=== PATIENT | male | born 1955 | race African-American/Black ===

== ENCOUNTER 2017-09-05 16:27 | Inpatient (IN) ==
[2017-09-05] MEDS ORDERED: ONDANSETRON 4 MG/2 ML VIAL IV PRN (18:30)
[2017-09-05] MEDS ORDERED: SODIUM CHLORIDE 0.9% 1,000 ML IV SCH (19:00)
[2017-09-05 19:34] LABS: Basophils % 0.4 % (0.0-0.8); Eosinophils % 0.2 % (0.00-10.9); Hematocrit 47.6 VOL% (42.0-52.0); Hemoglobin 15.9 GM/DL (14.0-18.0); Immature Granulocytes % 0.4 %; Immature Granulocytes Absolute 0.02 #; Lymphocytes # 0.9 10*3/uL (1.4-4.0); Lymphocytes % 17.1 % (21.2-54.2); Mean Corpuscular HGB Conc 33.4 GM/DL (32-36); Mean Corpuscular Hemoglobin 34 PG (27-34); Mean Corpuscular Volume 102.6 FL (87-102); Mean Platelet Volume 10.7 FL (9.6-12.0); Monocytes # 0.5 10*3/uL (0.11-0.8); Neutrophils % 72.9 % (38.7-73.9); Platelet Count 129 T/CUMM (130-400); Red Blood Count 4.64 MC/CUMM (3.8-5.5); Red Cell Distribution Width 12.3 % (9.3-17.3); White Blood Count 5.4 T/CUMM (4-12)
[2017-09-05 19:42] LABS: Calcium 8.2 MG/DL (8.5-10.1); Osmolality,Calculated 279.5 MOS/KG (273-304); Potassium 3.9 MMOL/L (3.5-5.1)
[2017-09-05] MEDS ORDERED: GLUCAGON 1 MG VIAL IM PRN (20:47)
[2017-09-05] MEDS ORDERED: DEXTROSE 50% 25 GM/50 ML VIAL IV PRN (20:47)
[2017-09-05] MEDS: OSELTAMIVIR 75 MG CAPSULE PO SCH (21:35)
[2017-09-05] MEDS: LUBIPROSTONE 24 MCG CAPSULE PO SCH (21:35)
[2017-09-05] MEDS: INSULIN LISPRO 100 UNIT/ML SUBCUT SCH (21:38)
[2017-09-05] MEDS: SODIUM CHLORIDE 0.9% 1,000 ML IV SCH (21:43)
[2017-09-06 05:24] LABS: Basophils % 0.4 % (0.0-0.8); Eosinophils # 0.1 10*3/uL (0.0-0.87); Eosinophils % 2.5 % (0.00-10.9); Hematocrit 42.2 VOL% (42.0-52.0); Hemoglobin 14.3 GM/DL (14.0-18.0); Immature Granulocytes % 0.2 %; Immature Granulocytes Absolute 0.01 #; Lymphocytes # 2.1 10*3/uL (1.4-4.0); Lymphocytes % 43.9 % (21.2-54.2); Mean Corpuscular HGB Conc 33.9 GM/DL (32-36); Mean Corpuscular Hemoglobin 34 PG (27-34); Mean Corpuscular Volume 100.5 FL (87-102); Mean Platelet Volume 10.9 FL (9.6-12.0); Monocytes # 0.6 10*3/uL (0.11-0.8); Monocytes % 11.7 % (1.7-12.7); Neutrophils % 41.3 % (38.7-73.9); Platelet Count 121 T/CUMM (130-400); Red Cell Distribution Width 12.4 % (9.3-17.3); White Blood Count 4.8 T/CUMM (4-12)
[2017-09-06] MEDS: SODIUM CHLORIDE 0.9% 1,000 ML IV SCH ×2 (05:42→14:58)
[2017-09-06 05:46] LABS: Calcium 8.2 MG/DL (8.5-10.1); Osmolality,Calculated 280.4 MOS/KG (273-304)
[2017-09-06 05:47] LABS: Eosinophils 1 % (0-10); Lymphocytes 44 % (20-55); Segmented Neutrophils 43 % (50-85); Total Cells Counted 100
[2017-09-06 05:48] LABS: Burr Cells Slight; Tear Drop Cells Slight
[2017-09-06 05:49] LABS: Platelet Estimate Adequate
[2017-09-06 07:47] LABS: Apearance,Urine Slightly Hazy (Clear); Bilirubin,Urine Negative (Negative); Blood, Urine Moderate mg/dL (Negative); Glucose,Urine (UA) Negative (Negative); Granular Casts,Urine 4 /LPF (0-1); Hyaline Casts,Urine 3 /LPF (0-3); Ketones,Urine Negative (Negative); Mucus,Urine Occasional /LPF (Occasional); Nitrite,Urine Negative (Negative); Protein,Urine 30 MG/DL; RBC,Urine <1 /HPF (0-4); Squamous Epithelial Cell,Urine Occasional /HPF (0-10); Urine Color Yellow (Yellow); Urine Specific Gravity 1.014 (1.001-1.035); Urine Urobilinogen < 2.0 EU/DL (0.2-1.0); WBC,Urine 3 /HPF (0-6); White Blood Cell Casts,Urine 1 /LPF (<1)
[2017-09-06] MEDS: DONEPEZIL 10 MG TABLET PO SCH (09:10)
[2017-09-06] MEDS: LUBIPROSTONE 24 MCG CAPSULE PO SCH ×2 (09:11→21:48)
[2017-09-06] MEDS: ESCITALOPRAM 10 MG TABLET PO SCH (09:11)
[2017-09-06] MEDS: ASPIRIN EC 81 MG TABLET PO SCH (09:11)
[2017-09-06] MEDS: OSELTAMIVIR 75 MG CAPSULE PO SCH (09:11)
[2017-09-06] MEDS: PANTOPRAZOLE 40 MG TABLET PO SCH (09:11)
[2017-09-06] MEDS: INSULIN LISPRO 100 UNIT/ML SUBCUT SCH ×4 (09:12→21:48)
[2017-09-06] MEDS: SODIUM BICARB INJ 100 MEQ in DEXTROSE 5% 1,000 ML IV SCH (14:59)
[2017-09-06] MEDS: OSELTAMIVIR 30 MG CAPSULE PO SCH (21:47)
[2017-09-07] MEDS: SODIUM BICARB INJ 100 MEQ in DEXTROSE 5% 1,000 ML IV SCH ×2 (01:44→11:37)
[2017-09-07] MEDS: SODIUM CHLORIDE 0.9% 1,000 ML IV SCH (04:12)
[2017-09-07] MEDS ORDERED: diphenhydrAMINE CAP 25 MG CAPSULE PO ONE (05:23)
[2017-09-07 06:28] LABS: Basophils % 0.5 % (0.0-0.8); Eosinophils # 0.1 10*3/uL (0.0-0.87); Eosinophils % 2.9 % (0.00-10.9); Hematocrit 36.3 VOL% (42.0-52.0); Hemoglobin 12.8 GM/DL (14.0-18.0); Lymphocytes # 1.9 10*3/uL (1.4-4.0); Lymphocytes % 45.3 % (21.2-54.2); Mean Corpuscular HGB Conc 35.3 GM/DL (32-36); Mean Corpuscular Hemoglobin 35 PG (27-34); Mean Corpuscular Volume 98.1 FL (87-102); Mean Platelet Volume 11.1 FL (9.6-12.0); Monocytes # 0.4 10*3/uL (0.11-0.8); Monocytes % 9.4 % (1.7-12.7); Neutrophils # 1.7 10*3/uL (1.4-7.4); Neutrophils % 41.9 % (38.7-73.9); Platelet Count 120 T/CUMM (130-400); Red Cell Distribution Width 12.6 % (9.3-17.3); White Blood Count 4.1 T/CUMM (4-12)
[2017-09-07 06:57] LABS: Calcium 8.2 MG/DL (8.5-10.1); Potassium 4.1 MMOL/L (3.5-5.1)
[2017-09-07 07:01] LABS: Burr Cells Slight; Giant Platelets Few; Hypochromasia Slight; Lymphocytes 43 % (20-55); Ovalocytes Slight; Platelet Estimate Normal; Segmented Neutrophils 47 % (50-85); Total Cells Counted 100
[2017-09-07] MEDS: PANTOPRAZOLE 40 MG TABLET PO SCH (08:34)
[2017-09-07] MEDS: ESCITALOPRAM 10 MG TABLET PO SCH (08:34)
[2017-09-07] MEDS: LUBIPROSTONE 24 MCG CAPSULE PO SCH ×2 (08:34→22:00)
[2017-09-07] MEDS: ASPIRIN EC 81 MG TABLET PO SCH (08:34)
[2017-09-07] MEDS: OSELTAMIVIR 30 MG CAPSULE PO SCH (08:34)
[2017-09-07] MEDS: DONEPEZIL 10 MG TABLET PO SCH (08:34)
[2017-09-07] MEDS: INSULIN LISPRO 100 UNIT/ML SUBCUT SCH ×4 (08:35→22:00)
[2017-09-07] MEDS: EMTRICITABINE PO SCH ×2 (10:33→21:59)
[2017-09-07] MEDS: [UNRECOGNIZED DRUG - OTHER] PO SCH ×2 (10:33→21:59)
[2017-09-07] MEDS: TENOFOVIR DISOPROXIL FUMARATE PO SCH ×2 (10:33→21:59)
[2017-09-07] MEDS: DARUNAVIR PO SCH ×2 (10:33→21:59)
[2017-09-07] MEDS: COBICISTAT PO SCH ×2 (10:33→21:59)
[2017-09-07] MEDS: [UNRECOGNIZED DRUG - OTHER] PO SCH ×2 (10:33→21:59)
[2017-09-07] MEDS: HYDROCORTISONE VALERATE 0.2% TOP SCH ×3 (11:08→22:04)
[2017-09-07] MEDS: OSELTAMIVIR 75 MG CAPSULE PO SCH (22:01)
[2017-09-08 07:02] LABS: Basophils % 0.5 % (0.0-0.8); Eosinophils # 0.1 10*3/uL (0.0-0.87); Eosinophils % 2.3 % (0.00-10.9); Hematocrit 36.6 VOL% (42.0-52.0); Hemoglobin 12.8 GM/DL (14.0-18.0); Immature Granulocytes % 0.2 %; Immature Granulocytes Absolute 0.01 #; Lymphocytes # 2.2 10*3/uL (1.4-4.0); Lymphocytes % 50.2 % (21.2-54.2); Mean Corpuscular Hemoglobin 34 PG (27-34); Mean Corpuscular Volume 98.4 FL (87-102); Mean Platelet Volume 10.4 FL (9.6-12.0); Monocytes # 0.3 10*3/uL (0.11-0.8); Monocytes % 7.8 % (1.7-12.7); Neutrophils # 1.7 10*3/uL (1.4-7.4); Platelet Count 137 T/CUMM (130-400); Red Blood Count 3.72 MC/CUMM (3.8-5.5); Red Cell Distribution Width 12.4 % (9.3-17.3); White Blood Count 4.3 T/CUMM (4-12)
[2017-09-08 07:28] LABS: Eosinophils 2 % (0-10); Giant Platelets Few; Hypochromasia 1+; Lymphocytes 44 % (20-55); Ovalocytes Slight; Platelet Estimate Normal; Segmented Neutrophils 44 % (50-85); Total Cells Counted 100
[2017-09-08 07:39] LABS: Albumin 3.2 G/DL (3.4-5.0); Bilirubin,Total 0.8 MG/DL (0.2-1.0); Calcium 8.7 MG/DL (8.5-10.1); Osmolality,Calculated 287.8 MOS/KG (273-304); Total Protein 5.9 G/DL (6.4-8.3)
[2017-09-08 08:12] VITALS: BP 146/81
[2017-09-08] MEDS: PANTOPRAZOLE 40 MG TABLET PO SCH (08:12)
[2017-09-08] MEDS: ASPIRIN EC 81 MG TABLET PO SCH (08:12)
[2017-09-08] MEDS: OSELTAMIVIR 75 MG CAPSULE PO SCH (08:12)
[2017-09-08] MEDS: DONEPEZIL 10 MG TABLET PO SCH (08:12)
[2017-09-08] MEDS: LUBIPROSTONE 24 MCG CAPSULE PO SCH (08:12)
[2017-09-08] MEDS: HYDROCORTISONE VALERATE 0.2% TOP SCH (08:12)
[2017-09-08] MEDS: ESCITALOPRAM 10 MG TABLET PO SCH (08:12)
[2017-09-08] MEDS: INSULIN LISPRO 100 UNIT/ML SUBCUT SCH (08:13)
== END 2017-09-08 12:50 | disposition home or self-care (01) | DRG 684 ==
LOC: SUATTDRO 17:48 → N.2E 17:48
PROVIDERS: ADMIT Internal Medicine; ATTEND Family Medicine

== ENCOUNTER 2018-06-29 05:34 | Inpatient (IN) ==
[2018-06-29] MEDS ORDERED: VANCOMYCIN INJ 1,000 MG in SODIUM CHLORIDE 0.9% 250 ML IV ONE (06:00)
[2018-06-29] MEDS ORDERED: CLINDAMYCIN INJ 900 MG in PREMIX 1 EACH IV ONE (06:00)
[2018-06-29] MEDS ORDERED: VANCOMYCIN 1,000 MG VIAL ONE (06:05)
[2018-06-29] MEDS ORDERED: CLINDAMYCIN INJ 50 ML IV ONE (06:05)
[2018-06-29] MEDS ORDERED: ACETAMINOPHEN 500 MG TABLET PO ONE (06:20)
[2018-06-29] MEDS ORDERED: GABAPENTIN 400 MG CAPSULE PO ONE (06:20)
[2018-06-29] MEDS ORDERED: LACTATED RINGERS 1,000 ML IV SCH (06:30)
[2018-06-29] MEDS ORDERED: ROPIVACAINE 0.5% 30 ML VIAL ONE (06:34)
[2018-06-29] MEDS ORDERED: TEMAZEPAM 7.5 MG CAPSULE PO PRN (08:37)
[2018-06-29] MEDS ORDERED: LACTULOSE 20 GM/30 ML UDCUP PO PRN (08:37)
[2018-06-29] MEDS ORDERED: MORPHINE 4 MG/1 ML VIAL IV PRN ×2 (08:37→08:59)
[2018-06-29] MEDS ORDERED: PROMETHAZINE 25 MG/1 ML VIAL IM PRN (08:37)
[2018-06-29] MEDS ORDERED: ONDANSETRON 4 MG/2 ML VIAL IV PRN (08:37)
[2018-06-29] MEDS ORDERED: BISACODYL 10 MG SUPP RECTAL PRN (08:37)
[2018-06-29] MEDS ORDERED: NALOXONE 0.4 MG/ML VIAL IV PRN (08:37)
[2018-06-29] MEDS ORDERED: LINACLOTIDE 145 MCG CAPSULE PO PRN (08:49)
[2018-06-29] MEDS ORDERED: GLUCAGON 1 MG VIAL IM PRN (08:50)
[2018-06-29] MEDS ORDERED: DEXTROSE 50% 25 GM/50 ML VIAL IV PRN (08:50)
[2018-06-29] MEDS ORDERED: PROPOFOL 200 MG/20 ML VIAL IV ONE (09:05)
[2018-06-29] MEDS ORDERED: MIDAZOLAM 2 MG/2 ML VIAL ONE (09:05)
[2018-06-29] MEDS ORDERED: BUPIVACAINE SPINAL 0.75% 2 ML AMP SPINAL ONE (09:05)
[2018-06-29] MEDS ORDERED: SODIUM CHLORIDE 0.9% 100 ML IV ONE (09:06)
[2018-06-29] MEDS ORDERED: TRANEXAMIC ACID 1,000 MG/10 ML VIAL ONE (09:06)
[2018-06-29] MEDS ORDERED: PHENYLEPHRINE 1 MG/10 ML SYRINGE IV ONE (09:06)
[2018-06-29] MEDS ORDERED: fentaNYL 100 MCG/2 ML VIAL ONE (09:06)
[2018-06-29] MEDS ORDERED: ONDANSETRON 4 MG/2 ML VIAL ONE (09:06)
[2018-06-29 09:14] LABS: Amorphous Crystals,Urine Few /HPF (Few); Apearance,Urine CLOUDY (Clear); Bilirubin,Urine Negative (Negative); Blood, Urine Negative (Negative); Glucose,Urine (UA) 150 mg/dL (Negative); Hyaline Casts,Urine 3 /LPF (0-3); Ketones,Urine Negative (Negative); Mucus,Urine Occasional /LPF (Occasional); Nitrite,Urine Negative (Negative); Protein,Urine Negative; RBC,Urine 8 /HPF (0-4); Squamous Epithelial Cell,Urine Occasional /HPF (0-10); Urine Color Amber (Yellow); Urine Specific Gravity 1.027 (1.001-1.035); Urine Urobilinogen < 2.0 EU/DL (0.2-1.0)
[2018-06-29] MEDS ORDERED: MORPHINE PCA 30 MG/30 ML SYRINGE IV ONE (09:19)
[2018-06-29] MEDS: MORPHINE PCA 30 MG/30 ML SYRINGE IV SCH (09:24)
[2018-06-29] MEDS ORDERED: INFLUENZA VIRUS VACCINE 0.5 ML SYRINGE IM ONE (10:27)
[2018-06-29] MEDS: MECLIZINE 25 MG TABLET PO SCH ×2 (10:39→21:49)
[2018-06-29] MEDS: DOCUSATE SODIUM 100 MG CAPSULE PO SCH ×2 (10:39→21:49)
[2018-06-29] MEDS: ASPIRIN EC 81 MG TABLET PO SCH (10:39)
[2018-06-29] MEDS: ATORVASTATIN 20 MG TABLET PO SCH (10:41)
[2018-06-29] MEDS: PANTOPRAZOLE 40 MG TABLET PO SCH ×2 (10:41→21:49)
[2018-06-29] MEDS: TOPIRAMATE 100 MG TABLET PO SCH ×2 (10:41→21:49)
[2018-06-29] MEDS: INSULIN NPH/REGULAR 70/30 100 UNIT/ML SUBCUT SCH ×2 (10:41→17:28)
[2018-06-29] MEDS: diphenhydrAMINE CAP 25 MG CAPSULE PO PRN (11:20)
[2018-06-29] MEDS ORDERED: INSULIN GLARGINE 100 UNIT/ML SUBCUT SCH (11:30)
[2018-06-29] MEDS: INSULIN REGULAR 100 UNIT/ML SUBCUT SCH ×3 (12:06→21:48)
[2018-06-29] MEDS: NICOTINE 14 MG/24 HR PATCH TRANSDERM SCH (14:05)
[2018-06-29] MEDS: CLINDAMYCIN INJ 900 MG in PREMIX 1 EACH IV SCH ×2 (14:06→21:46)
[2018-06-29] MEDS ORDERED: INSULIN NPH/REGULAR 70/30 100 UNIT/ML SUBCUT SCH (19:00)
[2018-06-29] MEDS: INSULIN GLARGINE 100 UNIT/ML SUBCUT SCH (21:47)
[2018-06-29] MEDS: FONDAPARINUX 2.5 MG/0.5 ML SYRINGE SUBCUT SCH (21:47)
[2018-06-29] MEDS: DONEPEZIL 10 MG TABLET PO SCH (21:48)
[2018-06-29] MEDS: EMTRICITABINE/TENOFOVIR 200-300 MG TABLET PO SCH (21:50)
[2018-06-29] MEDS: AZELASTINE NASAL 137 MCG/SPRAY 30 ML BOTTLE BOTH NARES SCH (21:50)
[2018-06-30 06:09] LABS: Basophils % 0.3 % (0.0-0.8); Eosinophils % 0.2 % (0.00-10.9); Hematocrit 39.2 VOL% (42.0-52.0); Hemoglobin 13.3 GM/DL (14.0-18.0); Immature Granulocytes % 0.6 %; Immature Granulocytes Absolute 0.07 #; Lymphocytes # 2.1 10*3/uL (1.4-4.0); Lymphocytes % 16.5 % (21.2-54.2); Mean Corpuscular HGB Conc 33.9 GM/DL (32-36); Mean Corpuscular Hemoglobin 34 PG (27-34); Mean Corpuscular Volume 100.8 FL (87-102); Mean Platelet Volume 10.5 FL (9.6-12.0); Monocytes # 1.1 10*3/uL (0.11-0.8); Monocytes % 8.9 % (1.7-12.7); Neutrophils # 9.2 10*3/uL (1.4-7.4); Neutrophils % 73.5 % (38.7-73.9); Platelet Count 132 T/CUMM (130-400); Red Blood Count 3.89 MC/CUMM (3.8-5.5); Red Cell Distribution Width 12.6 % (9.3-17.3); White Blood Count 12.5 T/CUMM (4-12)
[2018-06-30 06:37] LABS: Calcium 8.2 MG/DL (8.5-10.1); Osmolality,Calculated 266.4 MOS/KG (273-304); Potassium 3.5 MMOL/L (3.5-5.1)
[2018-06-30] MEDS: INSULIN REGULAR 100 UNIT/ML SUBCUT SCH ×4 (07:46→21:53)
[2018-06-30] MEDS: LUBIPROSTONE 24 MCG CAPSULE PO SCH ×2 (09:04→21:58)
[2018-06-30] MEDS: DOCUSATE SODIUM 100 MG CAPSULE PO SCH ×2 (09:04→21:58)
[2018-06-30] MEDS: MECLIZINE 25 MG TABLET PO SCH ×2 (09:04→21:58)
[2018-06-30] MEDS: AZELASTINE NASAL 137 MCG/SPRAY 30 ML BOTTLE BOTH NARES SCH ×2 (09:04→21:58)
[2018-06-30] MEDS: GABAPENTIN 300 MG CAPSULE PO SCH (09:04)
[2018-06-30] MEDS: PANTOPRAZOLE 40 MG TABLET PO SCH ×2 (09:05→21:58)
[2018-06-30] MEDS: TOPIRAMATE 100 MG TABLET PO SCH ×2 (09:05→21:58)
[2018-06-30] MEDS: ATORVASTATIN 20 MG TABLET PO SCH (09:05)
[2018-06-30] MEDS: NICOTINE 14 MG/24 HR PATCH TRANSDERM SCH (09:05)
[2018-06-30] MEDS: ASPIRIN EC 81 MG TABLET PO SCH (09:05)
[2018-06-30] MEDS: INSULIN NPH/REGULAR 70/30 100 UNIT/ML SUBCUT SCH ×2 (09:06→17:16)
[2018-06-30] MEDS: MORPHINE PCA 30 MG/30 ML SYRINGE IV SCH (15:35)
[2018-06-30] MEDS: FONDAPARINUX 2.5 MG/0.5 ML SYRINGE SUBCUT SCH (21:57)
[2018-06-30] MEDS: INSULIN GLARGINE 100 UNIT/ML SUBCUT SCH (21:57)
[2018-06-30] MEDS: DONEPEZIL 10 MG TABLET PO SCH (21:58)
[2018-06-30] MEDS: EMTRICITABINE/TENOFOVIR 200-300 MG TABLET PO SCH (21:59)
[2018-07-01] MEDS: diphenhydrAMINE CAP 25 MG CAPSULE PO PRN (06:14)
[2018-07-01] MEDS: INSULIN REGULAR 100 UNIT/ML SUBCUT SCH ×4 (09:52→20:36)
[2018-07-01] MEDS: INSULIN NPH/REGULAR 70/30 100 UNIT/ML SUBCUT SCH (09:53)
[2018-07-01] MEDS: PANTOPRAZOLE 40 MG TABLET PO SCH ×2 (09:54→21:50)
[2018-07-01] MEDS: ATORVASTATIN 20 MG TABLET PO SCH (09:54)
[2018-07-01] MEDS: DOCUSATE SODIUM 100 MG CAPSULE PO SCH ×2 (09:54→21:50)
[2018-07-01] MEDS: GABAPENTIN 300 MG CAPSULE PO SCH (09:54)
[2018-07-01] MEDS: LUBIPROSTONE 24 MCG CAPSULE PO SCH ×2 (09:55→21:51)
[2018-07-01] MEDS: MECLIZINE 25 MG TABLET PO SCH ×2 (09:55→21:50)
[2018-07-01] MEDS: TOPIRAMATE 100 MG TABLET PO SCH ×2 (09:55→21:50)
[2018-07-01] MEDS: NICOTINE 14 MG/24 HR PATCH TRANSDERM SCH (09:55)
[2018-07-01] MEDS: ASPIRIN EC 81 MG TABLET PO SCH (09:55)
[2018-07-01] MEDS: AZELASTINE NASAL 137 MCG/SPRAY 30 ML BOTTLE BOTH NARES SCH ×3 (09:56→21:56)
[2018-07-01 10:35] LABS: Basophils % 0.2 % (0.0-0.8); Eosinophils % 0.3 % (0.00-10.9); Hematocrit 40.7 VOL% (42.0-52.0); Hemoglobin 13.7 GM/DL (14.0-18.0); Immature Granulocytes % 0.5 %; Immature Granulocytes Absolute 0.06 #; Lymphocytes # 1.9 10*3/uL (1.4-4.0); Lymphocytes % 14.7 % (21.2-54.2); Mean Corpuscular HGB Conc 33.7 GM/DL (32-36); Mean Corpuscular Hemoglobin 34 PG (27-34); Mean Platelet Volume 10.1 FL (9.6-12.0); Monocytes # 1.1 10*3/uL (0.11-0.8); Monocytes % 8.5 % (1.7-12.7); Neutrophils # 9.7 10*3/uL (1.4-7.4); Neutrophils % 75.8 % (38.7-73.9); Platelet Count 138 T/CUMM (130-400); Red Blood Count 4.03 MC/CUMM (3.8-5.5); Red Cell Distribution Width 12.3 % (9.3-17.3); White Blood Count 12.7 T/CUMM (4-12)
[2018-07-01 10:52] LABS: Calcium 9.2 MG/DL (8.5-10.1); Osmolality,Calculated 272.7 MOS/KG (273-304)
[2018-07-01] MEDS: NOVOLIN 70/30 SUBCUT SCH (19:14)
[2018-07-01] MEDS: DONEPEZIL 10 MG TABLET PO SCH (21:50)
[2018-07-01] MEDS: FONDAPARINUX 2.5 MG/0.5 ML SYRINGE SUBCUT SCH (21:50)
[2018-07-01] MEDS: INSULIN GLARGINE 100 UNIT/ML SUBCUT SCH (21:52)
[2018-07-01] MEDS: EMTRICITABINE/TENOFOVIR 200-300 MG TABLET PO SCH (21:52)
[2018-07-02 06:05] LABS: Basophils % 0.1 % (0.0-0.8); Eosinophils # 0.1 10*3/uL (0.0-0.87); Eosinophils % 0.6 % (0.00-10.9); Hematocrit 32.9 VOL% (42.0-52.0); Hemoglobin 11.2 GM/DL (14.0-18.0); Immature Granulocytes % 0.5 %; Immature Granulocytes Absolute 0.05 #; Lymphocytes # 1.4 10*3/uL (1.4-4.0); Lymphocytes % 14.8 % (21.2-54.2); Mean Corpuscular Hemoglobin 34 PG (27-34); Mean Platelet Volume 10.1 FL (9.6-12.0); Monocytes % 9.9 % (1.7-12.7); Neutrophils # 7.1 10*3/uL (1.4-7.4); Neutrophils % 74.1 % (38.7-73.9); Platelet Count 121 T/CUMM (130-400); Red Blood Count 3.29 MC/CUMM (3.8-5.5); Red Cell Distribution Width 12.3 % (9.3-17.3); White Blood Count 9.6 T/CUMM (4-12)
[2018-07-02] MEDS: INSULIN REGULAR 100 UNIT/ML SUBCUT SCH ×4 (07:41→21:32)
[2018-07-02] MEDS: ATORVASTATIN 20 MG TABLET PO SCH (08:37)
[2018-07-02] MEDS: LUBIPROSTONE 24 MCG CAPSULE PO SCH ×2 (08:37→21:37)
[2018-07-02] MEDS: MECLIZINE 25 MG TABLET PO SCH ×2 (08:37→21:39)
[2018-07-02] MEDS: GABAPENTIN 300 MG CAPSULE PO SCH (08:38)
[2018-07-02] MEDS: PANTOPRAZOLE 40 MG TABLET PO SCH ×2 (08:38→21:32)
[2018-07-02] MEDS: ASPIRIN EC 81 MG TABLET PO SCH (08:38)
[2018-07-02] MEDS: DOCUSATE SODIUM 100 MG CAPSULE PO SCH ×2 (08:38→21:32)
[2018-07-02] MEDS: TOPIRAMATE 100 MG TABLET PO SCH ×2 (08:38→21:32)
[2018-07-02] MEDS: AZELASTINE NASAL 137 MCG/SPRAY 30 ML BOTTLE BOTH NARES SCH ×2 (08:39→21:33)
[2018-07-02] MEDS: NICOTINE 14 MG/24 HR PATCH TRANSDERM SCH (08:43)
[2018-07-02] MEDS: MAGNESIUM HYDROXIDE SUSP 30 ML UDCUP PO PRN ×2 (08:44→15:49)
[2018-07-02] MEDS: NOVOLIN 70/30 SUBCUT SCH ×2 (08:47→17:49)
[2018-07-02] MEDS: FONDAPARINUX 2.5 MG/0.5 ML SYRINGE SUBCUT SCH (21:32)
[2018-07-02] MEDS: DONEPEZIL 10 MG TABLET PO SCH (21:32)
[2018-07-02] MEDS: EMTRICITABINE/TENOFOVIR 200-300 MG TABLET PO SCH (21:33)
[2018-07-02] MEDS: INSULIN GLARGINE 100 UNIT/ML SUBCUT SCH (21:37)
[2018-07-03] MEDS: INSULIN REGULAR 100 UNIT/ML SUBCUT SCH ×4 (07:32→21:09)
[2018-07-03] MEDS: GABAPENTIN 300 MG CAPSULE PO SCH (08:31)
[2018-07-03] MEDS: DOCUSATE SODIUM 100 MG CAPSULE PO SCH ×2 (08:32→21:10)
[2018-07-03] MEDS: ATORVASTATIN 20 MG TABLET PO SCH (08:32)
[2018-07-03] MEDS: PANTOPRAZOLE 40 MG TABLET PO SCH ×2 (08:32→21:10)
[2018-07-03] MEDS: TOPIRAMATE 100 MG TABLET PO SCH ×2 (08:32→21:10)
[2018-07-03] MEDS: MECLIZINE 25 MG TABLET PO SCH ×2 (08:32→21:10)
[2018-07-03] MEDS: LUBIPROSTONE 24 MCG CAPSULE PO SCH ×2 (08:33→20:00)
[2018-07-03] MEDS: NICOTINE 14 MG/24 HR PATCH TRANSDERM SCH (08:34)
[2018-07-03] MEDS: ASPIRIN EC 81 MG TABLET PO SCH (08:34)
[2018-07-03] MEDS: AZELASTINE NASAL 137 MCG/SPRAY 30 ML BOTTLE BOTH NARES SCH ×2 (08:36→21:11)
[2018-07-03] MEDS: NOVOLIN 70/30 SUBCUT SCH ×2 (08:37→16:22)
[2018-07-03] MEDS: diphenhydrAMINE CAP 25 MG CAPSULE PO PRN (18:22)
[2018-07-03] MEDS: FONDAPARINUX 2.5 MG/0.5 ML SYRINGE SUBCUT SCH (21:09)
[2018-07-03] MEDS: INSULIN GLARGINE 100 UNIT/ML SUBCUT SCH (21:10)
[2018-07-03] MEDS: DONEPEZIL 10 MG TABLET PO SCH (21:10)
[2018-07-03] MEDS: EMTRICITABINE/TENOFOVIR 200-300 MG TABLET PO SCH (21:11)
[2018-07-04] MEDS: INSULIN REGULAR 100 UNIT/ML SUBCUT SCH ×2 (08:13→12:19)
[2018-07-04] MEDS: ATORVASTATIN 20 MG TABLET PO SCH (08:15)
[2018-07-04] MEDS: DOCUSATE SODIUM 100 MG CAPSULE PO SCH (08:15)
[2018-07-04] MEDS: NOVOLIN 70/30 SUBCUT SCH (08:15)
[2018-07-04] MEDS: PANTOPRAZOLE 40 MG TABLET PO SCH (08:15)
[2018-07-04] MEDS: GABAPENTIN 300 MG CAPSULE PO SCH (08:15)
[2018-07-04] MEDS: LUBIPROSTONE 24 MCG CAPSULE PO SCH (08:15)
[2018-07-04] MEDS: TOPIRAMATE 100 MG TABLET PO SCH (08:15)
[2018-07-04] MEDS: MECLIZINE 25 MG TABLET PO SCH (08:15)
[2018-07-04] MEDS: AZELASTINE NASAL 137 MCG/SPRAY 30 ML BOTTLE BOTH NARES SCH (08:16)
[2018-07-04] MEDS: ASPIRIN EC 81 MG TABLET PO SCH (08:16)
[2018-07-04] MEDS: NICOTINE 14 MG/24 HR PATCH TRANSDERM SCH (08:18)
[2018-07-04 12:40] VITALS: BP 133/73
== END 2018-07-04 14:45 | disposition swing bed (61) | DRG 470 ==
LOC: N.SDSINP 05:34 → N.3E 08:35
PROVIDERS: ADMIT Orthopaedic Surgery; ATTEND Orthopaedic Surgery

== ENCOUNTER 2019-03-16 16:23 | Observation (INO) ==
[2019-03-16] MEDS ORDERED: SODIUM CHLORIDE 0.9% 1,000 ML IV STA (17:40)
[2019-03-16] MEDS ORDERED: PANTOPRAZOLE 40 MG VIAL IV STA (17:40)
[2019-03-16] MEDS ORDERED: ONDANSETRON 4 MG/2 ML VIAL IV STA (17:40)
[2019-03-16 18:14] LABS: Alanine Aminotransferase 22 U/L (16-61); Alkaline Phosphatase 118 U/L (45-117); Amylase 62 U/L (25-115); Aspartate Amino Transferase 16 U/L (0-37); Blood Urea Nitrogen 15 MG/DL (7-18); Calcium 10.2 MG/DL (8.5-10.1); Estimated Glom Filtration Rate 85 ML/MIN; Glucose 169 MG/DL (74-106); Osmolality,Calculated 279.7 MOS/KG (273-304); Total Protein 7.9 G/DL (6.4-8.3); Troponin I < 0.015 NG/ML (0.00-0.045)
[2019-03-16 18:45] LABS: Basophils % 0.3 % (0.0-0.8); Eosinophils # 0.1 10*3/uL (0.0-0.87); Eosinophils % 1.7 % (0.00-10.9); Hemoglobin 16.2 GM/DL (14.0-18.0); Immature Granulocytes % 0.3 %; Immature Granulocytes Absolute 0.02 #; Lymphocytes # 2.1 10*3/uL (1.4-4.0); Lymphocytes % 37.1 % (21.2-54.2); Mean Corpuscular HGB Conc 34.5 GM/DL (32-36); Mean Corpuscular Volume 95.3 FL (87-102); Mean Platelet Volume 10.6 FL (9.6-12.0); Monocytes % 7.1 % (1.7-12.7); NRBC # 0.17 10*3/uL; Neutrophils % 53.5 % (38.7-73.9); Platelet Count 217 T/CUMM (130-400); Red Blood Count 4.93 MC/CUMM (3.8-5.5); Red Cell Distribution Width 12.7 % (9.3-17.3); White Blood Count 5.7 T/CUMM (4-12)
[2019-03-16] MEDS ORDERED: HYDROmorphone 2 MG/1 ML VIAL IV STA (18:52)
[2019-03-16 20:01] LABS: Apearance,Urine CLEAR (Clear); Bilirubin,Urine Negative (Negative); Blood, Urine Negative (Negative); Glucose,Urine (UA) 50 mg/dL (Negative); Ketones,Urine Negative (Negative); Nitrite,Urine Negative (Negative); Protein,Urine Negative; RBC,Urine 1 /HPF (0-4); Squamous Epithelial Cell,Urine Occasional /HPF (0-10); Urine Color Yellow (Yellow); Urine Specific Gravity 1.047 (1.001-1.035); Urine Urobilinogen < 2.0 EU/DL (0.2-1.0); WBC,Urine <1 /HPF (0-6)
[2019-03-16] MEDS ORDERED: ONDANSETRON 4 MG/2 ML VIAL IV PRN (21:03)
[2019-03-16] MEDS ORDERED: ACETAMINOPHEN 325 MG TABLET PO PRN (21:03)
[2019-03-16] MEDS: ENOXAPARIN 40 MG/0.4 ML SYRINGE SUBCUT SCH (22:40)
[2019-03-16] MEDS: SODIUM CHLORIDE 0.9% 1,000 ML IV SCH (22:40)
[2019-03-16] MEDS ORDERED: DEXTROSE 50% 25 GM/50 ML VIAL IV PRN (23:22)
[2019-03-16] MEDS ORDERED: GLUCAGON 1 MG VIAL IM PRN (23:22)
[2019-03-16] MEDS ORDERED: EMTRICITABINE/TENOFOVIR 200-300 MG TABLET PO SCH (23:45)
[2019-03-17] MEDS: FAMOTIDINE 20 MG TABLET PO SCH ×3 (00:25→20:06)
[2019-03-17] MEDS: DONEPEZIL 10 MG TABLET PO SCH ×2 (00:25→20:06)
[2019-03-17] MEDS: AZELASTINE NASAL 137 MCG/SPRAY 30 ML BOTTLE BOTH NARES SCH ×3 (00:26→20:06)
[2019-03-17] MEDS: INSULIN REGULAR 100 UNIT/ML SUBCUT SCH ×5 (00:32→21:37)
[2019-03-17] MEDS: SODIUM CHLORIDE 0.9% 1,000 ML IV SCH ×2 (06:48→20:07)
[2019-03-17 07:09] LABS: Basophils % 0.6 % (0.0-0.8); Eosinophils % 2.5 % (0.00-10.9); Hematocrit 42.5 VOL% (42.0-52.0); Hemoglobin 14.6 GM/DL (14.0-18.0); Immature Granulocytes % 0.3 %; Lymphocytes % 35.9 % (21.2-54.2); Mean Corpuscular HGB Conc 34.4 GM/DL (32-36); Mean Corpuscular Volume 96.4 FL (87-102); Mean Platelet Volume 9.8 FL (9.6-12.0); Monocytes % 6.5 % (1.7-12.7); Neutrophils % 54.2 % (38.7-73.9); Platelet Count 171 T/CUMM (130-400); Red Blood Count 4.41 MC/CUMM (3.8-5.5); Red Cell Distribution Width 12.8 % (9.3-17.3); White Blood Count 6.5 T/CUMM (4-12)
[2019-03-17 07:10] LABS: Eosinophils # 0.2 10*3/uL (0.0-0.87); Immature Granulocytes Absolute 0.02 #; Lymphocytes # 2.3 10*3/uL (1.4-4.0)
[2019-03-17 07:30] LABS: Albumin 3.4 G/DL (3.4-5.0); Bilirubin,Total 0.8 MG/DL (0.2-1.0); Osmolality,Calculated 283.4 MOS/KG (273-304); Total Protein 6.8 G/DL (6.4-8.3)
[2019-03-17] MEDS ORDERED: Empagliflozin [Jardiance] 10 MG PO SCH (09:00)
[2019-03-17] MEDS ORDERED: DORZOLAMIDE/TIMOLOL OPH SOLN 10 ML BOTTLE LEFT EYE SCH (09:00)
[2019-03-17] MEDS ORDERED: DARUNAVIR COBICISTAT PO SCH (09:00)
[2019-03-17] MEDS ORDERED: FLUCONAZOLE 100 MG TABLET PO SCH (09:00)
[2019-03-17] MEDS ORDERED: PANTOPRAZOLE 40 MG TABLET PO SCH (09:00)
[2019-03-17] MEDS ORDERED: ATORVASTATIN 20 MG TABLET PO SCH ×2 (09:00→11:26)
[2019-03-17] MEDS ORDERED: prednisoLONE ACETATE 1% OPH SUSP 5 ML BOTTLE RIGHT EYE SCH (09:00)
[2019-03-17] MEDS: MECLIZINE 25 MG TABLET PO SCH ×3 (11:36→20:06)
[2019-03-17] MEDS: MEGESTROL 40 MG TABLET PO SCH ×2 (11:36→20:06)
[2019-03-17] MEDS: ASPIRIN EC 81 MG TABLET PO SCH (11:37)
[2019-03-17] MEDS: LINACLOTIDE 145 MCG CAPSULE PO SCH (11:37)
[2019-03-17 14:23] LABS: Risk Ratio 5.13; Thyroid Stimulating Hormone 1.35 uIU/ml (0.358-3.74); VLDL CHOLESTEROL 33.2 MG/DL
[2019-03-17 15:25] LABS: Lymphocytes,CSF 80 %; Monocytes,CSF 20 %; Red Blood Cell,CSF 2 C/CUMM; White Blood Cell,CSF 15 C/CUMM
[2019-03-17 15:38] LABS: Appearance,CSF Clear
[2019-03-17] MEDS: PANTOPRAZOLE 40 MG TABLET PO SCH (16:28)
[2019-03-17] MEDS: prednisoLONE ACETATE 1% OPH SUSP 5 ML BOTTLE BOTH EYES SCH ×2 (16:31→20:07)
[2019-03-17] MEDS ORDERED: ERYTHROMYCIN 0.5% OPHT OINT 3.5 GM TUBE LEFT EYE SCH (21:00)
[2019-03-17] MEDS ORDERED: NON-FORMULARY MEDICATION (Omeprazole 40 MG) PO SCH (21:00)
[2019-03-17] MEDS: ENOXAPARIN 40 MG/0.4 ML SYRINGE SUBCUT SCH (21:37)
[2019-03-17] MEDS: SULFAMETHOX/TRIMETHOPRIM 800-160 MG TABLET PO SCH (21:38)
[2019-03-17] MEDS: DORZOLAMIDE/TIMOLOL OPH SOLN 10 ML BOTTLE LEFT EYE SCH (21:43)
[2019-03-18] MEDS: ASPIRIN EC 81 MG TABLET PO SCH (08:39)
[2019-03-18] MEDS: MECLIZINE 25 MG TABLET PO SCH (08:39)
[2019-03-18] MEDS: INSULIN REGULAR 100 UNIT/ML SUBCUT SCH ×2 (08:39→12:32)
[2019-03-18] MEDS: SULFAMETHOX/TRIMETHOPRIM 800-160 MG TABLET PO SCH (08:39)
[2019-03-18] MEDS: FAMOTIDINE 20 MG TABLET PO SCH (08:39)
[2019-03-18] MEDS: MEGESTROL 40 MG TABLET PO SCH (08:39)
[2019-03-18] MEDS: PANTOPRAZOLE 40 MG TABLET PO SCH (08:39)
[2019-03-18] MEDS: AZELASTINE NASAL 137 MCG/SPRAY 30 ML BOTTLE BOTH NARES SCH (08:42)
[2019-03-18] MEDS: prednisoLONE ACETATE 1% OPH SUSP 5 ML BOTTLE BOTH EYES SCH ×2 (08:43→12:34)
[2019-03-18] MEDS: LINACLOTIDE 145 MCG CAPSULE PO SCH ×2 (08:43→08:50)
[2019-03-18] MEDS: DORZOLAMIDE/TIMOLOL OPH SOLN 10 ML BOTTLE LEFT EYE SCH (08:43)
[2019-03-18 14:07] VITALS: BP 123/78
[2019-03-18] MEDS: SODIUM CHLORIDE 0.9% 1,000 ML IV SCH (15:05)
[2019-03-21] MEDS ORDERED: SEMAGLUTIDE 2.5 MG SUBCUT SCH (09:00)
[2019-03-21 22:10] LABS: B. garinii/afzelii PCR Negative (Negative); Lyme PCR Specimen Source CSF
== END 2019-03-18 14:45 | disposition home or self-care (01) ==
LOC: N.ED 16:23 → N.EDINP 16:23 → N.5E 21:15
PROVIDERS: ADMIT Internal Medicine; ATTEND Internal Medicine